=== PATIENT | female | born 1990 | race Caucasian/White ===

== ENCOUNTER 2017-05-30 10:03 | Emergency (ER) | payer SELFPAY ==
[~2017-05-30] VITALS: Ht 157.5 cm; Wt 109.1 kg
[2017-05-30 11:53] LABS: MICROSCOPIC AUTO
[2017-05-30 11:57] LABS: CULTURE INDICATED? YES
[2017-05-30 12:05] LABS: CLUE CELLS NONE SEEN (NONE SEEN); WET PREP WBCS MODERATE (FEW)
[2017-05-30] MEDS ORDERED: FLUCONAZOLE 100 MG TABLET PO ONE (12:30)
[2017-05-30] MEDS ORDERED: AZITHROMYCIN 500 MG TABLET PO ONE (12:30)
[2017-05-30] MEDS ORDERED: CEFTRIAXONE 250 MG IM ONE (12:30)
[2017-05-30] MEDS ORDERED: LIDOCAINE-MPF 1%, 2ML ONE (12:35)
[2017-05-30] MEDS ORDERED: AZITHROMYCIN 250 MG TABLET ONE (12:35)
[2017-05-30] MEDS ORDERED: FLUCONAZOLE 100 MG TABLET ONE (12:35)
[2017-05-30] MEDS ORDERED: CEFTRIAXONE 250 MG ONE (12:35)
[2017-05-30 13:38] VITALS: BP 122/61
== END 2017-05-30 13:40 | disposition home or self-care (01) ==
LOC: ED 10:58
DX: B37.3 Candidiasis of vulva and vagina (principal); B96.89 Other specified bacterial agents as the cause of diseases classified elsewhere
CPT/HCPCS: 81001; 81025; 87086; 87147; 87210; 87491; 87591; 87808; 96372; 99284; J0696

== ENCOUNTER 2017-06-01 23:28 | Emergency (ER) | payer SELFPAY ==
[~2017-06-01] VITALS: Ht 157.5 cm; Wt 110.2 kg
[2017-06-01 23:36] VITALS: BP 106/72
== END 2017-06-02 02:43 | disposition home or self-care (01) ==
LOC: ED 23:59
DX: A60.04 Herpesviral vulvovaginitis (principal)
CPT/HCPCS: 99283

== ENCOUNTER 2020-12-08 16:26 | Emergency (ER) | payer MEDICAID, OTHER ==
[~2020-12-08] VITALS: Ht 157.5 cm; Wt 107.7 kg
[2020-12-08] MEDS ORDERED: PHENAZOPYRIDINE 200 MG TABLET PO ONE (17:00)
[2020-12-08 17:39] LABS: BASOPHILS % (AUTO) 0 % (0-1); EOSINOPHILS % (AUTO) 1 % (1-7); LYMPHOCYTES % (AUTO) 12 % (22-44); MEAN CORPUSCULAR HEMOGLOBIN 28.1 pg (27.0-34.8); MEAN CORPUSCULAR HGB CONC 33.7 g/dL (32.4-35.8); MONOCYTES % (AUTO) 9 % (2-9); NEUTROPHILS % (AUTO) 78 % (42-75); PLATELET COUNT 297 x10^3/uL (130-400); RED CELL DISTRIBUTION WIDTH 13.8 % (9.6-15.2)
[2020-12-08 17:51] LABS: ALANINE AMINOTRANSFERASE 24 U/L (12-78); ALBUMIN 2.9 g/dL (3.4-5.0); ANION GAP 5 mmol/L (5-15); CHLORIDE 102 mmol/L (98-107); CREATININE 0.79 mg/dL (0.55-1.02)
[2020-12-08 17:56] LABS: ALKALINE PHOSPHATASE 116 U/L (45-117); BILIRUBIN,TOTAL 0.9 mg/dL (0.2-1.0); TOTAL PROTEIN 7.7 g/dL (6.4-8.2)
--- NOTE | 2020-12-08 18:43 | NUR ---
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
--- NOTE | 2020-12-08 20:00 | NUR ---
[facility].
[2020-12-08 20:53] VITALS: BP 114/69
[2020-12-08 21:07] LABS: MICROSCOPIC INDICATED
[2020-12-08] MEDS ORDERED: PHENAZOPYRIDINE 200 MG TABLET ONE (21:23)
== END 2020-12-08 21:28 | disposition home or self-care (01) ==
LOC: ED 21:20
DX: N30.00 Acute cystitis without hematuria (principal); R30.0 Dysuria
CPT/HCPCS: 36415; 80053; 81001; 84703; 85025; 87077; 87086; 87186; 99283